=== PATIENT | female | born 1960 | race Caucasian/White ===

== ENCOUNTER 2024-01-09 10:14 | Emergency (ER) | payer SELFPAY ==
[2024-01-09 10:27] VITALS: BP 139/78
--- NOTE | 2024-01-09 11:03 | ED.GENMED ---
History of Present Illness
General
Chief Complaint: Cough
Time Seen by Provider: 01/09/24 11:03
Travel History
Have you had any contact with someone who has COVID-19?: Yes
Comment: covid
Do you have any symptoms of coronavirus? Fever > 100 degrees, chills, cough, shortness of breath, sore throat, loss of taste or smell, muscle aches, or headache?: Yes
Symptoms:: covid
History of Present Illness
History of Present Illness:
HPI: Patient presents with a cough. Patient positive for COVID-19 6 days ago. Advair seem to worsen cough. She frequently has a cough around every time is here. She relates this to allergies. She has tried Advair and since she has been off of
Advair she was told not to take albuterol so she has not been taking any of the regular albuterol over the past several days.
EXAM:
GENERAL: Well appearing in no distress, occasional cough noted
HEENT: Moist oral mucosa
CARDIOVASCULAR: No murmurs, normal heart rate, regular rhythm, No chest wall tenderness
PULMONARY: No respiratory distress, breath sounds are somewhat diminished equally with scant wheeze
ABDOMEN: Soft with no peritoneal signs, no tenderness, elevated BMI
NEUROLOGIC: Excellent strength all extremities, no coordination deficits
PSYCHIATRIC: Appropriate mental status, normal insight and judgement
EXTREMITIES: Nontender, no edema, moves all extremities equally
SKIN: No rash, no lesions
TIME OF INITIAL ENCOUNTER: 11:10 AM
NUMBER AND COMPLEXITY OF PROBLEMS ADDRESSED AT THE ENCOUNTER
� Chronic conditions affecting care: Diabetes
� Acute Exacerbation and/or Progression of Chronic Illness: This is an acute problem
� Differential Diagnosis includes: COVID-19, pneumonia, seasonal allergies, medication related
AMOUNT AND/OR COMPLEXITY OF DATA TO BE REVIEWED AND ANALYZED
� I performed an independent evaluation of and my interpretation is:
EKG:
CT:
X-rays: I personally viewed chest x-ray and see no definite acute abnormality
Laboratory Studies:
Other:
� Review of other/old records: Chest x-ray from 2015 was unremarkable
� Clinical information was obtained by an independent historian: I spoke to at bedside
� Prescriptions/Medications Considered but not given:
� Further testing considered but not performed:
RISK OF COMPLICATIONS AND/OR MORBIDITY OR MORTALITY OF PATIENT MANAGEMENT
� Social determinants of health affecting care: Lives at home
� Discussion with other providers: None needed
� Escalation of care including admission/observation vs risk of discharge considered: The patient presents primarily due to cough. The cough may be multifactorial�recent diagnosis of COVID-19, seasonal allergies (similar
episodes yearly), and possibly related to irritation from Advair use. Overall she is well-appearing with normal sat. Will start low-dose steroids as the patient is a diabetic. On reassessment at 12 PM, the patient appears very comfortable. Will
hold off on cough suppressant but she did try DM as outpatient.
Past History
Past History
ED Past Medical History: NIDDM
ED Past Surgical History: Other (Partial thyroidectomy and cataract surgery)
Social History
Tobacco: Smoker (Cigars)
Alcohol: None
Drug: None
Personal:
Living: with family
Phy Exam
Physical Exam
Physical Exam:
See HPI
Course
Orders/Labs/Results
Orders:
Orders
01/09/24 11:04
CR Chest - 2 Views Urgent
Comment:
Reason For Exam: cough; +COVID19 6d ago
01/09/24 11:21
Prednisone [Deltasone] 10 mg PO NOW STA
Vital Signs
Initial and Last Documented VS:
Initial Vital Signs
Temp Pulse Resp BP Pulse Ox
98.4 F 86 18 139/78 98
01/09/24 10:27 01/09/24 10:27 01/09/24 10:27 01/09/24 10:27 01/09/24 10:27
Last Documented Vital Signs
Temp Pulse Resp BP Pulse Ox
98.4 F 86 18 139/75 96
01/09/24 10:27 01/09/24 10:27 01/09/24 10:27 01/09/24 12:00 01/09/24 12:30
*Critical Care Note
Total Time (30-74mins, 75-104mins- exclusive of procedures): Not Applicable
ED Attending Note
-
Portions of this chart may have been created with voice recognition software.� Occasional wrong word or��sound alike� substitutions may have occurred due to the inherent limitations of voice recognition software.
Discharge Plan
Departure
Patient Disposition: Home (Routine Discharge)
Date of Disposition: 01/09/24
Time of Disposition: 11:53
Patient with high blood pressure during this ER visit?: Yes
Discharge Problem:
Cough
Instructions: Cough, Adult (DC)
Prescriptions:
New
prednisone 10 mg tablet
10 mg PO DAILY Qty: 4 0RF
No Action
clopidogrel [Plavix] 75 mg tablet
75 mg PO DAILY 21 Days Qty: 21 0RF
aspirin [Adult Low Dose Aspirin] 81 mg tablet,delayed release (DR/EC)
81 mg PO DAILY Qty: 30 0RF
Interventions
Interventions:
*Risk Screen - Suicide Last Done: 01/09/24 10:27
*General Assessment Last Done: 01/09/24 10:27
*Neglect/Abuse Screening Last Done: 01/09/24 10:27
*Nursing Disposition Last Done: 01/09/24 12:36
Discharge Date and Time
Discharge Date/Time: 01/09/24 12:37
[2024-01-09] MEDS: DELTASONE 10 MG PO (11:53)
[2024-01-09 11:54] VITALS: BP 135/86
[2024-01-09 11:55] VITALS: BMI 37.1
[2024-01-09 12:00] VITALS: BP 139/75
== END 2024-01-09 12:37 | disposition home or self-care (01) ==
LOC: EMR 10:14
PROVIDERS: EMERGENCY PHYSICIAN Emergency Medicine; FAMILY PHYSICIAN Internal Medicine
DX: R05.9 Cough, unspecified (principal); F17.290 Nicotine dependence, other tobacco product, uncomplicated; U07.1 COVID-19; E11.9 Type 2 diabetes mellitus without complications
CPT/HCPCS: 99283; 71046